=== PATIENT | male | born 2000 | race Caucasian/White ===

== ENCOUNTER 2023-01-05 00:40 | Emergency (ER) | payer OTHER, MEDICAID, SELFPAY ==
[2023-01-05 00:54] VITALS: BP 150/90; PULSE 118; O2SAT 99
[2023-01-05 01:06] VITALS: BP 134/74; BP 150/90; PULSE 101; PULSE 118; RESP 14; TEMP 36.7; O2SAT 99; BMI 33.0
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
== END 2023-01-05 01:40 | disposition home or self-care (01) ==
LOC: HO.ED 01:32
PROVIDERS: Emergency Provider Emergency Medicine
DX: R40.4 Transient alteration of awareness (principal)
CPT/HCPCS: 99282